=== PATIENT | female | born 1960 | race Caucasian/White ===

== ENCOUNTER → 2024-06-25 | Day surgery (SDC) | payer OTHER | END | disposition home or self-care (01) | LOC: FMAMMOTONE 10:25 | PROVIDERS: ATTEND Family Medicine | PROC: 0HBT3ZX Excision of Right Breast, Percutaneous Approach, Diagnostic (ICD-10-PCS; principal; 2024-06-25) | DX: Z53.8 Procedure and treatment not carried out for other reasons (principal); R92.8 Other abnormal and inconclusive findings on diagnostic imaging of breast | CPT/HCPCS: 19081 ==

== ENCOUNTER 2025-01-08 22:09 | Inpatient (IN) | payer OTHER ==
[2025-01-08] MEDS ORDERED: FAMOTIDINE 20 MG/50 ML IVPB 20 MG/50 ML MG IVPB ONE (23:25)
[2025-01-08] MEDS ORDERED: ACETAMINOPHEN INJECTION 100 ML ONE (23:25)
[2025-01-08] MEDS: SODIUM CHLORIDE 0.9% 1000 ML INFUS.BAG IV ONE (23:31)
[2025-01-08] MEDS: ACETAMINOPHEN 1000 MG/100 ML BAG IVPB ONE (23:32)
[2025-01-08] MEDS: FAMOTIDINE 20 MG/50 ML IVPB 20 MG/50 ML MG IVPB ONE (23:32)
[2025-01-08 23:34] LABS: ABSOLUTE IMMATURE GRANULOCYTES 0.01 x10^3/uL (0.0-0.031); BASOPHILS # 0.02 x10^3/uL (0.01-0.08); EOSINOPHIL % 0.2 % (0.7-5.8); EOSINOPHILS # 0.01 x10^3/uL (0.04-0.36); HEMATOCRIT 54.8 % (34.1-44.9); MCHC 34.7 g/dl (32.2-35.5); MEAN CELL VOLUME 92.1 fl (79.4-94.8); MEAN PLT VOLUME 11.1 fl (9.4-12.3); MONOCYTE # 0.39 x10^3/uL (0.24-0.86); MONOCYTE % 5.9 % (4.7-12.5); PLATELET COUNT 312 x10^3/uL (182-369)
[2025-01-08] MEDS ORDERED: LORazepam 2 MG/ML SDV VIAL ONE (23:34)
[2025-01-08 23:55] LABS: ALBUMIN 3.6 g/dl (3.4-5.0); BILIRUBIN,TOTAL 0.4 mg/dl (0.2-1); CALCIUM 9.3 mg/dl (8.5-10.1); CREATININE 1.1 mg/dl (0.6-1.3); POTASSIUM 4.5 mmol/L (3.5-5.1); TOT PROT 5.8 g/dl (6.4-8.2)
[2025-01-09] MEDS ORDERED: ONDANSETRON 4 MG/2 ML VIAL ONE ×2 (01:16→13:55)
[2025-01-09] MEDS: ONDANSETRON 4 MG/2 ML VIAL IVPUSH ONE (01:19)
[2025-01-09] MEDS ORDERED: PANTOPRAZOLE SODIUM 40 MG VIAL ONE (02:15)
[2025-01-09] MEDS: PANTOPRAZOLE SODIUM 40 MG VIAL IVPUSH ONE (02:21)
[2025-01-09] MEDS ORDERED: LORazepam 2 MG/ML SDV VIAL ONE (03:36)
[2025-01-09] MEDS ORDERED: PIPERACILLIN/TAZOBACTAM 4.5 GM VIAL IVPB ONE (03:36)
[2025-01-09] MEDS: LACTATED RINGERS SOLUTION 1000 ML INFUS.BAG IV ONE ×3 (03:48→23:30)
[2025-01-09] MEDS: PIPERACILLIN/TAZOB 4.5 GM 4.5 GM in DEXTROSE 5%-WATER 100 ML IVPB ONE (03:48)
[2025-01-09 04:17] LABS: INR 1.95 (0.83-1.09); PROTHROMBIN TIME (PATIENT) 21.4 SEC (9.7-13.0)
[2025-01-09 04:28] LABS: PHOSPHOROUS 6.3 mg/dL (2.5-4.9)
[2025-01-09 04:59] LABS: LACTIC ACID 3.1 mmol/L (0.4-2.0)
[2025-01-09] MEDS ORDERED: ACETAMINOPHEN 1000 MG/100 ML BAG IVPB PRN ×2 (05:01→15:24)
[2025-01-09] MEDS ORDERED: ALBUTEROL SO4 2.5/IPRATROPIUM 0.5 INH SOL 3 ML VIAL.NEB. NEB PRN ×2 (05:11→15:24)
[2025-01-09] MEDS ORDERED: ONDANSETRON 4 MG/2 ML VIAL IVPUSH PRN ×2 (05:16→15:24)
[2025-01-09] MEDS ORDERED: HYDROmorphone HCL CARPU-JECT 2 MG/1 ML DISP.SYRIN IVPUSH PRN ×3 (05:46→15:24)
[2025-01-09] MEDS: LACTATED RINGERS SOLUTION 1,000 ML/1,000 ML INFUS.BAG IV SCH (06:23)
[2025-01-09] MEDS: MAGNESIUM SULFATE IN WATER 2 GM/50 ML IVPB IVPB SCH (06:23)
[2025-01-09] MEDS: PHYTONADIONE 10 MG/1 ML AMP IVPB ONE (06:24)
[2025-01-09 07:25] LABS: URINE BARBITURATES NEGATIVE (NEGATIVE); URINE BENZODIAZEPINES NEGATIVE (NEGATIVE)
[2025-01-09 07:26] LABS: METHADONE, UR NEGATIVE (NEGATIVE); PHENCYCLIDINE,URINE NEGATIVE (NEGATIVE); URINE AMPHETAMINES NEGATIVE (NEGATIVE)
[2025-01-09 07:28] LABS: COCAINE, UR NEGATIVE (NEGATIVE); OPIATES, URI NEGATIVE (NEGATIVE)
[2025-01-09 07:31] LABS: VENOUS BASE EXCESS -9.5 mmol/L (-2-2); VENOUS O2 SATURATION 82.1 % (70-80); VENOUS PCO2 30.6 mmHg (38-52); VENOUS PH 7.308 (7.310-7.410)
[2025-01-09 08:14] LABS: URINE APPEARANCE CLEAR; URINE BILIRUBIN NEGATIVE (NEGATIVE); URINE COLOR YELLOW; URINE GLUCOSE (UA) NEGATIVE (NEGATIVE); URINE KETONE NEGATIVE (NEGATIVE)
[2025-01-09 08:15] LABS: EPI CELLS 15.7 /uL (0-25.1); HYALINE CASTS 6.15 /uL (0-3.1); PH,URINE 5.5 (5.0-8.0); URINE BACTERIA 0.9 /uL (0-1359); URINE LEUK ESTERASE NEGATIVE (NEGATIVE); URINE NITRITE NEGATIVE (NEGATIVE); URINE PROTEIN 2+ (NEGATIVE); URINE RBC 23.2 /uL (0-23.9)
[2025-01-09 08:26] LABS: LACTIC ACID 2.7 mmol/L (0.4-2.0)
[2025-01-09] MEDS: PIPERACILLIN/TAZOB 3.375 GM 3.375 GM in DEXTROSE 5%-WATER - 50 ML IVPB SCH ×2 (09:20→20:42)
[2025-01-09] MEDS: HYDROmorphone HCL CARPU-JECT 2 MG/1 ML DISP.SYRIN IVPUSH PRN (09:23)
[2025-01-09 10:07] LABS: HEMATOCRIT 55.5 % (34.1-44.9); HEMOGLOBIN 19.2 g/dL (11.2-15.7); MCHC 34.6 g/dl (32.2-35.5); PLATELET COUNT 214 x10^3/uL (182-369); RDW 12.2 % (12.4-16.4)
[2025-01-09 10:12] LABS: INR 1.92 (0.83-1.09); PROTHROMBIN TIME (PATIENT) 20.9 SEC (9.7-13.0)
[2025-01-09] MEDS: MUPIROCIN 2% TOPICAL OINTMENT FOR DECOLONIZATION NS SCH ×2 (10:21→21:01)
[2025-01-09 10:37] LABS: CHLORIDE 98 mmol/L (98-107); SODIUM 123 mmol/L (136-145)
[2025-01-09 10:39] LABS: ALBUMIN 1.8 g/dl (3.4-5.0); BLOOD UREA NITROGEN 25.5 mg/dL (7-18); CALCIUM 9.2 mg/dL (8.5-10.1); CO2 15 mmol/L (21-32)
[2025-01-09 10:40] LABS: GLUCOSE,RANDOM 138 mg/dL (74-106); MAGNESIUM 3.2 mg/dL (1.8-2.4)
[2025-01-09 10:43] LABS: SGOT/AST 82 U/L (15-37)
[2025-01-09 10:44] LABS: BILIRUBIN,TOTAL 0.7 mg/dL (0.2-1); TOT PROT 5.1 g/dl (6.4-8.2)
[2025-01-09 10:45] LABS: ALK PHOS 70 U/L (45-117)
[2025-01-09] MEDS: SODIUM CHLORIDE 1,000 ML IV STA (10:47)
[2025-01-09 10:57] LABS: ANION GAP 10 mmol/L (4-13); POTASSIUM 9.4 mmol/L (3.5-5.1); SGPT/ALT 22 U/L (13-61)
[2025-01-09] MEDS ORDERED: LIDOCAINE HCL/PF 2% SDV 5ML VIAL ONE (11:33)
[2025-01-09] MEDS ORDERED: ROCURONIUM BROMIDE 50 MG/5 ML SYRINGE ONE (11:33)
[2025-01-09] MEDS ORDERED: MIDAZOLAM HCL 2 MG/2 ML SINGLE DOSE VIAL ONE (11:33)
[2025-01-09] MEDS ORDERED: PROPOFOL 20 ML ONE (11:33)
[2025-01-09] MEDS ORDERED: BENZOIN/ALOE VERA/STORAX/TOLU 58 ML BOTTLE ONE (11:44)
[2025-01-09] MEDS ORDERED: ETOMIDATE 20 MG/10 ML VIAL IVPUSH ONE (11:45)
[2025-01-09 11:51] LABS: BLOOD UREA NITROGEN 26.5 mg/dL (7-18); CALCIUM 8.3 mg/dL (8.5-10.1)
[2025-01-09 11:52] LABS: MAGNESIUM 2.6 mg/dL (1.8-2.4)
[2025-01-09 11:55] LABS: CREATININE 0.9 mg/dL (0.55-1.3); PHOSPHOROUS 6.5 mg/dL (2.5-4.9)
[2025-01-09 12:38] LABS: LACTIC ACID 3.1 mmol/L (0.4-2.0)
[2025-01-09] MEDS ORDERED: SUGAMMADEX SODIUM 200 MG/2 ML VIAL ONE (13:55)
[2025-01-09] MEDS: SODIUM CHLORIDE 1,000 ML IV SCH (15:05)
[2025-01-09] MEDS: THIAMINE HCL 200 MG/2 ML VIAL IVPB SCH (15:05)
[2025-01-09] MEDS: PIPERACILLIN/TAZOB 3.375 GM 3.375 GM in DEXTROSE 5%-WATER 100 ML IVPB SCH (15:27)
[2025-01-09 16:43] LABS: HEMOGLOBIN 14.3 g/dL (11.2-15.7); MCHC 34.9 g/dl (32.2-35.5); MEAN CELL VOLUME 90.9 fl (79.4-94.8); MEAN PLT VOLUME 11.7 fl (9.4-12.3); PLATELET COUNT 162 x10^3/uL (182-369); RDW 12.1 % (12.4-16.4)
[2025-01-09 17:44] LABS: POTASSIUM 4.3 mmol/L (3.5-5.1)
[2025-01-09 17:45] LABS: CALCIUM 7.7 mg/dL (8.5-10.1)
[2025-01-09 17:46] LABS: BLOOD UREA NITROGEN 21.7 mg/dL (7-18)
[2025-01-09 17:49] LABS: CREATININE 0.6 mg/dL (0.55-1.3); PHOSPHOROUS 5.6 mg/dL (2.5-4.9)
[2025-01-09] MEDS: ALBUMIN HUMAN 25% 12.5 GM/50 ML VIAL IV SCH (20:23)
[2025-01-09] MEDS: ACETAMINOPHEN 1000 MG/100 ML BAG IVPB SCH (20:41)
[2025-01-09] MEDS: NICOTINE 14 MG/24 HOURS TOPICAL PATCH TD SCH (21:01)
[2025-01-09] MEDS: FAMOTIDINE 20 MG/50 ML IVPB 20 MG/50 ML MG IVPB SCH (21:01)
[2025-01-09] MEDS: CHLORHEXIDINE GLUCONATE 4% CLEANSER FOR DECOLONIZATION TP SCH (21:03)
[2025-01-09] MEDS: HEPARIN NA (PORCINE) 5,000 UNITS/ML 1ML VIAL SQ SCH (21:03)
[2025-01-09] MEDS ORDERED: MUPIROCIN 2% TOPICAL OINTMENT FOR DECOLONIZATION NS SCH (22:00)
[2025-01-09] MEDS ORDERED: CHLORHEXIDINE GLUCONATE 4% CLEANSER FOR DECOLONIZATION TP SCH ×2 (22:00)
[2025-01-09] MEDS: ALBUMIN HUMAN 5% 500 ML IV SOLUTION IV ONE (23:45)
[2025-01-10] MEDS ORDERED: DEXTROSE 50%-WATER 25 GM/50 ML DISP.SYRIN ONE ×2 (00:40→06:19)
[2025-01-10] MEDS: DEXTROSE 50%-WATER - 25 GM/50 ML VIAL IVPUSH PRN (00:56)
[2025-01-10] MEDS: DEXTROSE 50%-WATER - 25 GM/50 ML VIAL IVPUSH ONE (06:15)
[2025-01-10 06:36] LABS: BASOPHILS # 0.01 x10^3/uL (0.01-0.08); RDW 12.4 % (12.4-16.4)
[2025-01-10 06:38] LABS: EOSINOPHIL % 0.3 % (0.7-5.8); EOSINOPHILS # 0.02 x10^3/uL (0.04-0.36); HEMATOCRIT 30.1 % (34.1-44.9); HEMOGLOBIN 10.2 g/dL (11.2-15.7); MCHC 33.9 g/dl (32.2-35.5); MEAN CELL VOLUME 91.2 fl (79.4-94.8); MEAN PLT VOLUME 11.2 fl (9.4-12.3); MONOCYTE # 0.23 x10^3/uL (0.24-0.86); MONOCYTE % 3.8 % (4.7-12.5); PLATELET COUNT 132 x10^3/uL (182-369)
[2025-01-10 06:45] LABS: POTASSIUM 3.7 mmol/L (3.5-5.1)
[2025-01-10 06:51] LABS: CALCIUM 8.3 mg/dL (8.5-10.1)
[2025-01-10 06:52] LABS: BLOOD UREA NITROGEN 16.9 mg/dL (7-18); MAGNESIUM 2.2 mg/dL (1.8-2.4)
[2025-01-10 06:55] LABS: CREATININE 0.6 mg/dL (0.55-1.3); PHOSPHOROUS 5.2 mg/dL (2.5-4.9)
[2025-01-10 06:56] LABS: BILIRUBIN,TOTAL 0.6 mg/dL (0.2-1)
[2025-01-10 08:02] LABS: ALBUMIN 2.6 g/dl (3.4-5.0)
[2025-01-10] MEDS: DEXTROSE 5%-LACTATED RINGERS 1,000 ML IV SCH (09:14)
[2025-01-10] MEDS ORDERED: PANTOPRAZOLE SODIUM 40 MG VIAL IVPUSH SCH ×2 (10:00)
[2025-01-10] MEDS: LACTATED RINGERS SOLUTION 1000 ML INFUS.BAG IV ONE (23:15)
[2025-01-11] MEDS: LORazepam 2 MG/ML SDV VIAL IVPUSH PRN (06:30)
[2025-01-11 07:46] LABS: ABSOLUTE IMMATURE GRANULOCYTES 0.03 x10^3/uL (0.0-0.031); MONOCYTE % 2.9 % (4.7-12.5)
[2025-01-11 07:47] LABS: BASOPHILS # 0.03 x10^3/uL (0.01-0.08); EOSINOPHIL % 2.5 % (0.7-5.8); EOSINOPHILS # 0.26 x10^3/uL (0.04-0.36); HEMATOCRIT 28.2 % (34.1-44.9); HEMOGLOBIN 9.8 g/dL (11.2-15.7); MCHC 34.8 g/dl (32.2-35.5); MEAN CELL VOLUME 90.4 fl (79.4-94.8); MEAN PLT VOLUME 11.4 fl (9.4-12.3); PLATELET COUNT 120 x10^3/uL (182-369); RDW 12.5 % (12.4-16.4)
[2025-01-11 08:02] LABS: POTASSIUM 3.2 mmol/L (3.5-5.1)
[2025-01-11 08:15] LABS: BLOOD UREA NITROGEN 11.7 mg/dL (7-18); CALCIUM 7.7 mg/dL (8.5-10.1)
[2025-01-11 08:16] LABS: MAGNESIUM 1.6 mg/dL (1.8-2.4)
[2025-01-11 08:18] LABS: CREATININE 0.5 mg/dL (0.55-1.3)
[2025-01-11 08:19] LABS: PHOSPHOROUS 2.7 mg/dL (2.5-4.9)
[2025-01-11 08:20] LABS: BILIRUBIN,TOTAL 0.4 mg/dL (0.2-1); TOT PROT 3.8 g/dl (6.4-8.2)
[2025-01-11] MEDS: PIPERACILLIN/TAZOB 3.375 GM 3.375 GM in DEXTROSE 5%-WATER - 50 ML IVPB SCH (10:04)
[2025-01-11] MEDS: KCL 10 MEQ IVPB 10 MEQ/100 ML INFUS.BAG IVPB SCH (11:03)
[2025-01-11] MEDS: ALBUTEROL SO4 2.5/IPRATROPIUM 0.5 INH SOL 3 ML VIAL.NEB. NEB ONE (11:04)
[2025-01-11] MEDS: MAGNESIUM 2GM/50ML STERILE WATER IVPB IVPB ONE (11:36)
[2025-01-11] MEDS: CASPOFUNGIN ACETATE 70 MG in SODIUM CHLORIDE 250 ML IVPB ONE (12:00)
[2025-01-11] MEDS: HYDROmorphone HCL CARPU-JECT 2 MG/1 ML DISP.SYRIN IVPUSH PRN ×2 (14:30→22:14)
[2025-01-11] MEDS: CASPOFUNGIN ACETATE 50 MG in SODIUM CHLORIDE 250 ML IVPB SCH (18:51)
[2025-01-11] MEDS: ACETAMINOPHEN 1000 MG/100 ML BAG IVPB PRN (21:38)
[2025-01-12 06:58] LABS: POTASSIUM 3.3 mmol/L (3.5-5.1)
[2025-01-12 06:59] LABS: HEMATOCRIT 32.8 % (34.1-44.9); HEMOGLOBIN 11.3 g/dL (11.2-15.7); MCHC 34.5 g/dl (32.2-35.5); MEAN CELL VOLUME 91.6 fl (79.4-94.8); MEAN PLT VOLUME 11.3 fl (9.4-12.3); PLATELET COUNT 140 x10^3/uL (182-369); RDW 12.8 % (12.4-16.4)
[2025-01-12 07:09] LABS: CALCIUM 8.5 mg/dL (8.5-10.1)
[2025-01-12 07:10] LABS: ALBUMIN 1.9 g/dl (3.4-5.0); BLOOD UREA NITROGEN 10.2 mg/dL (7-18); MAGNESIUM 1.9 mg/dL (1.8-2.4)
[2025-01-12 07:13] LABS: CREATININE 0.5 mg/dL (0.55-1.3)
[2025-01-12 07:15] LABS: BILIRUBIN,TOTAL 0.8 mg/dL (0.2-1); TOT PROT 4.1 g/dl (6.4-8.2)
[2025-01-12 09:42] LABS: ARTERIAL BLD GAS O2 SATURATION 87.5 % (95-98); ARTERIAL BLOOD GAS BASE EXCESS -0.6 mmol/L (-2-2); ARTERIAL BLOOD GAS PO2 51.3 mmHg (80-100); ARTERIAL BLOOD GAS pH 7.428 (7.350-7.450)
[2025-01-12] MEDS: ALBUTEROL SO4 0.042% IH SOL 1.25 MG/3 ML VIAL.NEB NEB PRN (10:00)
[2025-01-12] MEDS: ALBUTEROL SO4 0.083% IH SOL 2.5 MG/3 ML VIAL.NEB. NEB ONE (10:00)
[2025-01-12] MEDS: ACETYLCYSTEINE 20% 200MG/ML 4 ML VIAL *FOR ORAL / INH USE ONLY NEB ONE (10:00)
[2025-01-12] MEDS: KCL 10 MEQ IVPB 10 MEQ/100 ML INFUS.BAG IVPB SCH (10:09)
[2025-01-12] MEDS ORDERED: ALBUTEROL SO4 0.083% IH SOL 2.5 MG/3 ML VIAL.NEB. NEB PRN (11:54)
[2025-01-12] MEDS: methylPREDNISolone NA SUCC 40 MG/1 ML VIAL IVPUSH SCH (12:00)
[2025-01-12] MEDS: CASPOFUNGIN ACETATE 50 MG in SODIUM CHLORIDE 250 ML IVPB SCH ×2 (12:29→19:46)
[2025-01-12] MEDS: ALBUTEROL SO4 0.083% IH SOL 2.5 MG/3 ML VIAL.NEB. NEB SCH (15:15)
[2025-01-12] MEDS: ACETYLCYSTEINE 20% 200MG/ML 30 ML VIAL *FOR ORAL / INH USE ONLY NEB SCH (15:15)
[2025-01-12 15:32] VITALS: BMI 15.6
[2025-01-12] MEDS: PIPERACILLIN/TAZOB 3.375 GM 3.375 GM in DEXTROSE 5%-WATER - 50 ML IVPB SCH ×2 (18:17→19:46)
[2025-01-12] MEDS ORDERED: ACETYLCYSTEINE 20% 200MG/ML 4 ML VIAL *FOR ORAL / INH USE ONLY ONE (20:15)
[2025-01-12] MEDS: ACETAMINOPHEN 1000 MG/100 ML BAG IVPB PRN (21:44)
[2025-01-13 06:28] LABS: POTASSIUM 3.8 mmol/L (3.5-5.1)
[2025-01-13 06:30] LABS: ALBUMIN 1.8 g/dl (3.4-5.0); CALCIUM 8.6 mg/dL (8.5-10.1)
[2025-01-13 06:31] LABS: BLOOD UREA NITROGEN 14.4 mg/dL (7-18); MAGNESIUM 1.7 mg/dL (1.8-2.4)
[2025-01-13 06:34] LABS: CREATININE 0.5 mg/dL (0.55-1.3); PHOSPHOROUS 4.9 mg/dL (2.5-4.9)
[2025-01-13 06:35] LABS: BILIRUBIN,TOTAL 0.6 mg/dL (0.2-1); TOT PROT 4.4 g/dl (6.4-8.2)
[2025-01-13 06:50] LABS: HEMATOCRIT 35.8 % (34.1-44.9); HEMOGLOBIN 12.3 g/dL (11.2-15.7); MCHC 34.4 g/dl (32.2-35.5); MEAN CELL VOLUME 91.8 fl (79.4-94.8); MEAN PLT VOLUME 11.4 fl (9.4-12.3); PLATELET COUNT 169 x10^3/uL (182-369)
[2025-01-13] MEDS: DEXTROSE 5%-LACTATED RINGERS 1,000 ML IV SCH (08:00)
[2025-01-13] MEDS: ACETYLCYSTEINE 20% 200MG/ML 4 ML VIAL *FOR ORAL / INH USE ONLY NEB SCH (08:16)
[2025-01-13] MEDS: MAGNESIUM 1GM/D5W - 1 GM/100 ML IVPB IVPB ONE (09:13)
[2025-01-13] MEDS: CASPOFUNGIN ACETATE 50 MG in SODIUM CHLORIDE 250 ML IVPB SCH (09:25)
[2025-01-13] MEDS: risperiDONE 0.5 MG TABLET PO SCH (23:27)
[2025-01-13] MEDS: DIVALPROEX SODIUM 250 MG TABLET E.C. PO ONE (23:27)
[2025-01-14 07:03] LABS: ABSOLUTE IMMATURE GRANULOCYTES 0.16 x10^3/uL (0.0-0.031); BASOPHILS # 0.02 x10^3/uL (0.01-0.08); HEMATOCRIT 32.7 % (34.1-44.9); HEMOGLOBIN 10.9 g/dL (11.2-15.7); MCHC 33.3 g/dl (32.2-35.5); MEAN CELL VOLUME 93.2 fl (79.4-94.8); MEAN PLT VOLUME 10.8 fl (9.4-12.3); MONOCYTE # 0.38 x10^3/uL (0.24-0.86); MONOCYTE % 3.6 % (4.7-12.5); PLATELET COUNT 225 x10^3/uL (182-369); RDW 13.2 % (12.4-16.4)
[2025-01-14 07:19] LABS: POTASSIUM 3.4 mmol/L (3.5-5.1)
[2025-01-14 07:22] LABS: ALBUMIN 1.7 g/dl (3.4-5.0); CALCIUM 8.5 mg/dL (8.5-10.1); MAGNESIUM 1.8 mg/dL (1.8-2.4)
[2025-01-14 07:25] LABS: CREATININE 0.5 mg/dL (0.55-1.3)
[2025-01-14 07:27] LABS: PHOSPHOROUS 3.4 mg/dL (2.5-4.9)
[2025-01-14 07:28] LABS: BILIRUBIN,TOTAL 0.3 mg/dL (0.2-1); TOT PROT 4.2 g/dl (6.4-8.2)
[2025-01-14] MEDS ORDERED: ACETAMINOPHEN INJECTION 100 ML ONE (07:41)
[2025-01-14] MEDS ORDERED: ACETAMINOPHEN 1000 MG/100 ML BAG IVPB PRN (08:02)
[2025-01-14] MEDS: POTASSIUM CHLORIDE ORAL LIQUID 20 MEQ/15 ML PO ONE (08:19)
[2025-01-14] MEDS ORDERED: DIVALPROEX SODIUM 250 MG TABLET E.C. PO SCH (10:00)
[2025-01-14] MEDS ORDERED: ACETAMINOPHEN 500 MG TABLET (FP) PO PRN (11:12)
[2025-01-14] MEDS ORDERED: HYDROmorphone HCL CARPU-JECT 2 MG/1 ML DISP.SYRIN IVPUSH PRN (11:14)
[2025-01-14] MEDS: traMADol HCL 50 MG TABLET PO PRN (16:24)
[2025-01-14] MEDS: risperiDONE 1 MG TABLET PO SCH (21:12)
[2025-01-14] MEDS: DIVALPROEX NA *ER* EXTEND REL 250 MG TABLET.SA PO SCH (22:07)
[2025-01-14] MEDS: DEXMEDETOMIDINE PREMIX 400 MCG/100 ML BAG IVPB SCH (22:16)
[2025-01-14] MEDS ORDERED: risperiDONE 0.5 MG TABLET PO SCH (22:20)
[2025-01-15 06:57] LABS: ABSOLUTE IMMATURE GRANULOCYTES 0.19 x10^3/uL (0.0-0.031); BASOPHILS # 0.02 x10^3/uL (0.01-0.08); HEMATOCRIT 33.9 % (34.1-44.9); HEMOGLOBIN 11.1 g/dL (11.2-15.7); MCHC 32.7 g/dl (32.2-35.5); MEAN PLT VOLUME 10.7 fl (9.4-12.3); MONOCYTE # 0.32 x10^3/uL (0.24-0.86); MONOCYTE % 2.9 % (4.7-12.5); PLATELET COUNT 230 x10^3/uL (182-369); RDW 13.1 % (12.4-16.4)
[2025-01-15 07:15] LABS: POTASSIUM 3.4 mmol/L (3.5-5.1)
[2025-01-15 07:24] LABS: ALBUMIN 1.8 g/dl (3.4-5.0); BLOOD UREA NITROGEN 17.3 mg/dL (7-18); CALCIUM 8.6 mg/dL (8.5-10.1)
[2025-01-15 07:25] LABS: MAGNESIUM 1.6 mg/dL (1.8-2.4)
[2025-01-15 07:27] LABS: CREATININE 0.6 mg/dL (0.55-1.3); PHOSPHOROUS 4.2 mg/dL (2.5-4.9)
[2025-01-15 07:28] LABS: BILIRUBIN,TOTAL 0.3 mg/dL (0.2-1)
[2025-01-15] MEDS ORDERED: KCL 10 MEQ IVPB 10 MEQ/100 ML INFUS.BAG IVPB SCH (07:30)
[2025-01-15 07:41] LABS: TOT PROT 4.4 g/dl (6.4-8.2)
[2025-01-15] MEDS: MAGNESIUM SULFATE IN WATER 2 GM/50 ML IVPB IVPB ONE (08:53)
[2025-01-15] MEDS: POTASSIUM CHLORIDE ORAL LIQUID 20 MEQ/15 ML PO SCH (09:02)
[2025-01-15] MEDS: DIVALPROEX NA *ER* EXTEND REL 250 MG TABLET.SA PO SCH (21:17)
[2025-01-15] MEDS: MELATONIN 5 MG TABLETS PO ONE (23:33)
[2025-01-16 06:54] LABS: HEMATOCRIT 35.1 % (34.1-44.9); HEMOGLOBIN 11.5 g/dL (11.2-15.7); MCHC 32.8 g/dl (32.2-35.5); MEAN CELL VOLUME 95.4 fl (79.4-94.8); MEAN PLT VOLUME 10.9 fl (9.4-12.3); PLATELET COUNT 261 x10^3/uL (182-369); RDW 13.2 % (12.4-16.4)
[2025-01-16 07:09] LABS: POTASSIUM 4.2 mmol/L (3.5-5.1)
[2025-01-16 07:11] LABS: ALBUMIN 1.8 g/dl (3.4-5.0); CALCIUM 8.3 mg/dL (8.5-10.1); MAGNESIUM 1.8 mg/dL (1.8-2.4)
[2025-01-16 07:14] LABS: CREATININE 0.5 mg/dL (0.55-1.3)
[2025-01-16 07:15] LABS: PHOSPHOROUS 4.3 mg/dL (2.5-4.9)
[2025-01-16 07:16] LABS: BILIRUBIN,TOTAL 0.3 mg/dL (0.2-1); TOT PROT 4.4 g/dl (6.4-8.2)
[2025-01-16] MEDS: MELATONIN 5 MG TABLETS PO PRN (22:16)
[2025-01-17 06:42] LABS: HEMATOCRIT 38.2 % (34.1-44.9); HEMOGLOBIN 12.4 g/dL (11.2-15.7); MCHC 32.5 g/dl (32.2-35.5); MEAN CELL VOLUME 95.3 fl (79.4-94.8); MEAN PLT VOLUME 10.6 fl (9.4-12.3); PLATELET COUNT 327 x10^3/uL (182-369); RDW 13.2 % (12.4-16.4)
[2025-01-17 07:05] LABS: BLOOD UREA NITROGEN 19.3 mg/dL (7-18); CALCIUM 8.3 mg/dL (8.5-10.1); MAGNESIUM 1.7 mg/dL (1.8-2.4)
[2025-01-17 07:08] LABS: CREATININE 0.5 mg/dL (0.55-1.3)
[2025-01-17 07:09] LABS: PHOSPHOROUS 4.6 mg/dL (2.5-4.9)
[2025-01-17 07:10] LABS: BILIRUBIN,TOTAL 0.3 mg/dL (0.2-1); TOT PROT 4.7 g/dl (6.4-8.2)
[2025-01-17] MEDS: ACETAMINOPHEN 500 MG TABLET (FP) PO PRN (08:35)
[2025-01-17] MEDS: MAGNESIUM 2GM/50ML STERILE WATER IVPB IVPB ONE (08:39)
[2025-01-17] MEDS: LACTOBACILLUS ACIDOPHILUS 1 TABLET PO SCH (21:05)
[2025-01-18] MEDS ORDERED: HYDROmorphone HCL CARPU-JECT 2 MG/1 ML DISP.SYRIN IVPUSH PRN (06:18)
[2025-01-18] MEDS ORDERED: traMADol HCL 50 MG TABLET PO PRN ×2 (06:18→16:38)
[2025-01-18] MEDS ORDERED: ONDANSETRON 4 MG/2 ML VIAL IVPUSH PRN (06:18)
[2025-01-18] MEDS ORDERED: LORazepam 2 MG/ML SDV VIAL IVPUSH PRN (06:18)
[2025-01-18 07:19] LABS: HEMATOCRIT 36.8 % (34.1-44.9); HEMOGLOBIN 11.8 g/dL (11.2-15.7); MCHC 32.1 g/dl (32.2-35.5); MEAN CELL VOLUME 96.1 fl (79.4-94.8); MEAN PLT VOLUME 10.7 fl (9.4-12.3); PLATELET COUNT 362 x10^3/uL (182-369); RDW 13.2 % (12.4-16.4)
[2025-01-18 07:32] LABS: POTASSIUM 3.8 mmol/L (3.5-5.1)
[2025-01-18 07:39] LABS: CALCIUM 8.8 mg/dL (8.5-10.1)
[2025-01-18 07:40] LABS: BLOOD UREA NITROGEN 21.9 mg/dL (7-18); MAGNESIUM 1.9 mg/dL (1.8-2.4)
[2025-01-18 07:43] LABS: CREATININE 0.5 mg/dL (0.55-1.3); PHOSPHOROUS 4.5 mg/dL (2.5-4.9)
[2025-01-18 07:44] LABS: BILIRUBIN,TOTAL 0.4 mg/dL (0.2-1); TOT PROT 4.6 g/dl (6.4-8.2)
[2025-01-18] MEDS: ACETYLCYSTEINE 20% 200MG/ML 4 ML VIAL *FOR ORAL / INH USE ONLY NEB SCH (08:58)
[2025-01-18] MEDS: ALBUTEROL SO4 0.083% IH SOL 2.5 MG/3 ML VIAL.NEB. NEB SCH (08:58)
[2025-01-18] MEDS: THIAMINE HCL 200 MG/2 ML VIAL IVPB SCH (08:59)
[2025-01-18] MEDS: HEPARIN NA (PORCINE) 5,000 UNITS/ML 1ML VIAL SQ SCH (08:59)
[2025-01-18] MEDS: NICOTINE 14 MG/24 HOURS TOPICAL PATCH TD SCH (09:00)
[2025-01-18] MEDS: PIPERACILLIN/TAZOB 3.375 GM 3.375 GM in DEXTROSE 5%-WATER - 50 ML IVPB SCH (09:00)
[2025-01-18] MEDS: methylPREDNISolone NA SUCC 40 MG/1 ML VIAL IVPUSH SCH (09:00)
[2025-01-18] MEDS: FAMOTIDINE 20 MG/50 ML IVPB 20 MG/50 ML MG IVPB SCH (09:01)
[2025-01-18] MEDS: CASPOFUNGIN ACETATE 50 MG in SODIUM CHLORIDE 250 ML IVPB SCH (09:01)
[2025-01-18] MEDS: ACETAMINOPHEN 500 MG TABLET (FP) PO PRN (09:12)
[2025-01-18] MEDS: DIVALPROEX NA *ER* EXTEND REL 250 MG TABLET.SA PO SCH (21:28)
[2025-01-18] MEDS: risperiDONE 1 MG TABLET PO SCH (21:28)
[2025-01-18] MEDS: VANCOMYCIN HCL 125 MG CAPSULE (RESTRICTED TO ID ONLY) PO SCH (21:28)
[2025-01-18] MEDS ORDERED: VANCOMYCIN HCL 125 MG CAPSULE (RESTRICTED TO ID ONLY) PO SCH (23:56)
[2025-01-19] MEDS: VANCOMYCIN HCL 125 MG CAPSULE (RESTRICTED TO ID ONLY) PO SCH (06:22)
[2025-01-19 07:06] LABS: POTASSIUM 3.8 mmol/L (3.5-5.1)
[2025-01-19 07:10] LABS: HEMATOCRIT 33.5 % (34.1-44.9); HEMOGLOBIN 11.1 g/dL (11.2-15.7); MCHC 33.1 g/dl (32.2-35.5); MEAN CELL VOLUME 95.2 fl (79.4-94.8); MEAN PLT VOLUME 10.9 fl (9.4-12.3); PLATELET COUNT 378 x10^3/uL (182-369); RDW 13.2 % (12.4-16.4)
[2025-01-19 07:12] LABS: ALBUMIN 1.9 g/dl (3.4-5.0); BLOOD UREA NITROGEN 20.5 mg/dL (7-18); CALCIUM 8.5 mg/dL (8.5-10.1)
[2025-01-19 07:15] LABS: CREATININE 0.5 mg/dL (0.55-1.3)
[2025-01-19 07:16] LABS: BILIRUBIN,TOTAL 0.4 mg/dL (0.2-1)
[2025-01-19 07:17] LABS: TOT PROT 4.5 g/dl (6.4-8.2)
[2025-01-19] MEDS: FLUCONAZOLE 100 MG TABLET (UD) PO SCH (09:57)
[2025-01-20 06:47] LABS: ABSOLUTE IMMATURE GRANULOCYTES 0.11 x10^3/uL (0.0-0.031); BASOPHILS # 0.02 x10^3/uL (0.01-0.08); EOSINOPHIL % 1.5 % (0.7-5.8); EOSINOPHILS # 0.22 x10^3/uL (0.04-0.36); HEMATOCRIT 32.8 % (34.1-44.9); HEMOGLOBIN 10.4 g/dL (11.2-15.7); MCHC 31.7 g/dl (32.2-35.5); MEAN CELL VOLUME 96.8 fl (79.4-94.8); MEAN PLT VOLUME 10.7 fl (9.4-12.3); MONOCYTE % 5.3 % (4.7-12.5); PLATELET COUNT 377 x10^3/uL (182-369); RDW 13.4 % (12.4-16.4)
[2025-01-20 07:15] LABS: POTASSIUM 3.6 mmol/L (3.5-5.1)
[2025-01-20 07:19] LABS: BLOOD UREA NITROGEN 21.6 mg/dL (7-18); CALCIUM 8.1 mg/dL (8.5-10.1)
[2025-01-20 07:20] LABS: ALBUMIN 1.9 g/dl (3.4-5.0)
[2025-01-20 07:23] LABS: CREATININE 0.4 mg/dL (0.55-1.3)
[2025-01-20 07:24] LABS: BILIRUBIN,TOTAL 0.4 mg/dL (0.2-1); TOT PROT 4.3 g/dl (6.4-8.2)
[2025-01-20] MEDS: methylPREDNISolone NA SUCC 40 MG/1 ML VIAL IVPUSH SCH (10:48)
[2025-01-20] MEDS ORDERED: ALBUTEROL SO4 0.083% IH SOL 2.5 MG/3 ML VIAL.NEB. NEB PRN (14:28)
[2025-01-20] MEDS ORDERED: ACETYLCYSTEINE 20% 200MG/ML 4 ML VIAL *FOR ORAL / INH USE ONLY NEB PRN (14:28)
[2025-01-21] MEDS: THIAMINE 100 MG TABLET PO SCH (10:05)
[2025-01-22 09:29] VITALS: RESP 18
[2025-01-22 13:26] VITALS: BP 105/67; PULSE 100; TEMP 98
== END 2025-01-22 18:10 | disposition home or self-care (01) | DRG 853 ==
LOC: FER 22:09 → JICU 01-09 04:30 → FER 01-09 04:41 → J2W 01-15 17:54
PROVIDERS: ADMIT Internal Medicine Pulmonary Disease; ATTEND Student in an Organized Health Care Education/Training Program
PROC: 0DT80ZZ Resection of Small Intestine, Open Approach (ICD-10-PCS; principal; 2025-01-09 11:00)
DX: A41.9 Sepsis, unspecified organism (principal); E43 Unspecified severe protein-calorie malnutrition; J95.821 Acute postprocedural respiratory failure; K65.8 Other peritonitis; K63.1 Perforation of intestine (nontraumatic); E87.1 Hypo-osmolality and hyponatremia; J98.11 Atelectasis; Z68.1 Body mass index [BMI] 19.9 or less, adult; J90 Pleural effusion, not elsewhere classified; E03.9 Hypothyroidism, unspecified; F39 Unspecified mood [affective] disorder; F10.90 Alcohol use, unspecified, uncomplicated; E86.1 Hypovolemia; K66.8 Other specified disorders of peritoneum; E83.39 Other disorders of phosphorus metabolism; E83.42 Hypomagnesemia; E87.6 Hypokalemia; D69.6 Thrombocytopenia, unspecified; D64.9 Anemia, unspecified; F17.210 Nicotine dependence, cigarettes, uncomplicated; Y83.8 Other surgical procedures as the cause of abnormal reaction of the patient, or of later complication, without mention of misadventure at the time of the procedure
CPT/HCPCS: 0241U-QW; 36415; 36600; 71045-TC-FY; 74177-TC; 80048; 80053; 80164; 80307; 81003; 82436; 82570; 82803; 82962; 83605; 83690; 83735; 83935; 84100; 84300; 84439; 84443; 84484; 85025; 85027; 85610; 86922; 87040; 87070; 87075; 87077; 87081; 87106; 87205; 88307-TC; 93005; 93010; 94640; 94660; 94761; 97116-GP; 97161-GP; 99291; G0480; J0637

== ENCOUNTER 2025-03-24 18:07 | Emergency (ER) | payer OTHER ==
[2025-03-24 20:01] VITALS: BP 116/81; PULSE 101; RESP 18; TEMP 98.6; BMI 16.1
== END 2025-03-24 21:10 | disposition home or self-care (01) ==
LOC: FER 18:07
DX: R10.10 Upper abdominal pain, unspecified (principal); R19.09 Other intra-abdominal and pelvic swelling, mass and lump
CPT/HCPCS: 74176-TC; 99284-25